=== PATIENT | male | born 1965 | race Caucasian/White ===

== ENCOUNTER 2025-01-31 09:33 | Emergency (ER) | payer BC, SELFPAY ==
[2025-01-31] VITALS (13 sets, daily range): BP systolic 135–170; BP diastolic 59–100; PULSE 37–45; RESP 11–18; TEMP 36.1; O2SAT 97–100; BMI 26.6
--- NOTE | 2025-01-31 09:41 | ED_ITS ---
HPI - General Adult General Time Seen by Provider: 09:41 Date Seen: 01/31/25 Chief complaint: Arrhythmia/Palpitations Stated complaint: heartblock Time Seen by Provider: 01/31/25 09:40 Source: patient, RN notes reviewed and other (Dr. Arauz brought EKG over, gave report to me.) Mode of arrival: ambulatory Limitations: no limitations History of Present Illness HPI narrative: This 59-year-old male is brought over from the clinic with a finding of complete heart block on his EKG. He had scheduled an appointment in clinic with Dr. Arauz to establish care. His pulse was low and EKG was obtained showing complete heart block with a rate of 43 beats per minute, right bundle branch block. Patient notes no recent history of any episodes of chest pain. He state s sometimes will get a little dry feeling in his throat with some discomfort. 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 He notes no dyspnea on exertion or shortness of breath. 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 He did get his care through [facility]. He notes his blood pressure is usually low, really has not noted any problems with his pulse or really paid attention to his pulse. Related Data Home Medications ?Medication ?Instructions ?Recorded ?Confirmed No Known Home Medications 02/01/2201/09 Allergies Allergy/AdvReac Type Severity Reaction Status Date / Time pollen extracts Allergy Mild Congested Verified 01/31/25 08:40 Review of Systems Status of ROS: Reports: 6 or more systems reviewed and unremarkable except as noted in History and below [facility] Medical History Bradycardia ?R00.1 - Bradycardia, unspecified (ICD-10) Pathologic lumbar vertebral fracture ?M84.48XA - Pathological fracture, other site, initial encounter for fracture (ICD-10) Chronic dryness of both eyes ?H04.123 - Dry eye syndrome of bilateral lacrimal glands (ICD-10) Osteoarthritis of left knee ?M17.12 - Unilateral primary osteoarthritis, left knee (ICD-10) History of pulmonary embolus (PE) (2014) ?Z86.711 - Personal history of pulmonary embolism (ICD-10) History of diffuse large B-cell lymphoma (06/2014) ?Z85.72 - Personal history of non-Hodgkin lymphomas (ICD-10) Surgical History History of right cataract surgery (2022) ?Z98.41 - Cataract extraction status, right eye (ICD-10) Status post laparoscopic Heller myotomy ?Z98.890 - Other specified postprocedural states (ICD-10) History of appendectomy ?Z90.49 - Acquired absence of other specified parts of digestive tract (ICD- 10) History of Meckel's diverticulum ?Z87.19 - Personal history of other diseases of the digestive system (ICD-10) Family History Brother Premature coronary artery disease Myocardial infarction, Onset Age: 46 , Onset Age: 46 Paternal Grandmother Heart disease Father High blood pressure, Onset Age: 16 Paternal Grandfather Heart disease Social History What is your current living situation?: I presently have a place to live Problems where you live: declined to answer In the past 12 months, utilities in danger of being shut off: no In past 12 months, lack of transportation kept you from medical appts, meetings, work, or getting things needed for daily living: no In the past 12 mos, have been you worried that your food would run out before you had money to buy more?: declined to answer In the past 12 mos, the food you bought just didn't last and you didn't have money to buy more?: declined to answer Smoking Status: Never smoker How often does anyone, including family, friends and others, physically hurt you : never How often does anyone, including family, friends and others, insult or talk down to you: never How often does anyone, including family, friends and others, threaten you with harm: never How often does anyone, including family, friends and others, scream or curse at you: never Exam Const: Vital Signs, click to edit/add: Vital Signs - 24 hr 01/31/25 09:45 01/31/25 09:45 01/31/25 10:00 Temperature 97.0 F L Pulse Rate 44 L 39 L Pulse Rate [Pulse Oximeter] 45 L Respiratory Rate 18 15 Blood Pressure Blood Pressure [Ri ght Upper Arm] 170/89 H Pulse Oximetry 99 100 99 Oxygen Delivery Me thod Room Air 01/31/25 10:03 Temperature Pulse Rate 41 L Pulse Rate [Pulse Oximeter] Respiratory Rate 16 Blood Pressure 159/64 H Blood Pressure [Ri ght Upper Arm] Pulse Oximetry 98 Oxygen Delivery Me thod This 59-year-old male is alert, interactive, no apparent distress. Ambulatory into the ED from clinic. Sclera clear come face atraumatic. Skin appears pale but sclera clear. Able to speak in complete sentences, speech normal. Neck is supple, no adenopathy or masses. Lungs are clear, good air entry, wheezing or crackles, no tachypnea, no accessory muscle use. CV is slow but regular, no murmur noted, normal S1-S2. Abdomen is soft, nontender, nondistended, no organomegaly. No lower extremity edema. Documenting provider has reviewed patient's vital signs: yes Course Course ED Course: Milo is aware that he is in complete heart block, this has already been explain to him. He and I discussed that he needs to see Cardiology, he thought maybe he would go back to [facility] as that is where he did is cancer care. I will try to talk to them. Will have him on cardiac monitoring, pulse oximetry, pacer pads placed but he seems quite stable. Will check labs. He states he is on no medicines, thus there is not likely anything contributing. Will certainly get troponin but it does not sound like he is aware of any episode that would suggest he had a heart attack. Consultations Consultation #1: Did speak with Madelyn MAZARIEGOS in triage at [facility]. [facility] and cardiac ICU are on divert, they have no bed capacity. She is going to check with [facility]. Have updated the patient on this. If [facility] has no bed capacity, he is in agreement to check with [facility]. 9:57 a.m.: Madelyn MAZARIEGOS did call back, she will be paging cardiology at [facility] and reviewing case to see if they can accept this patient. She will let me know as soon as she finds anything out. Time: 09:47 Consultation #2: Spoke with Dr. Johnson from [facility]. They will be taking this patient through the ED so he can go to the electrical laboratory technician for temporary pacemaker. Dr. Bruner from [facility] was patched in on the call, is aware of the plan. Patient has complete heart block and will be transferred to [facility] for further care. Patient is updated on this and is in agreement with plan. Time: 11:08 Vital Signs Vital signs: Initial Vital Signs Temperature 97.0 F L 01/31/25 09:45 Temperature Source Temporal Artery Scan 01/31/25 09:45 Pulse Rate 44 L 01/31/25 09:45 Respiratory Rate 18 01/31/25 09:45 Blood Pressure 170/89 H 01/31/25 09:45 Blood Pressure Mean 116 H 01/31/25 09:45 Blood Pressure Position Sitting 01/31/25 09:45 Pulse Oximetry 99 01/31/25 09:45 Oxygen Delivery Method Room Air 01/31/25 09:45 Vital Signs Temperature 97.0 F L 01/31/25 09:45 Pulse Rate 44 L 01/31/25 09:45 Respiratory Rate 18 01/31/25 09:45 Blood Pressure 170/89 H 01/31/25 09:45 Pulse Oximetry 99 01/31/25 09:45 Oxygen Delivery Method Room Air 01/31/25 09:45 Temperature 97.0 F L 01/31/25 09:45 Pulse Rate 41 L 01/31/25 10:03 Respiratory Rate 16 01/31/25 10:03 Blood Pressure 159/64 H 01/31/25 10:03 Pulse Oximetry 98 01/31/25 10:03 Oxygen Delivery Method Room Air 01/31/25 09:45 Medical Decision Making Lab Data Lab results reviewed: Yes I reviewed the patient's lab results Labs: Lab Results 01/31/25 Range/Units 09:55 WBC 6.70 (4.50-11.00) K/uL RBC 4.48 (4.30-5.90) m/uL Hgb 13.4 L (13.5-17.5) gm/dL Hct 40.5 (37.0-53.0) % MCV 90 (80-100) fL MCH 30 (26-34) pg MCHC 33 (32-36) gm/dL RDW Coeff of Harinder 12.8 (11.5-15.5) % Plt Count 220 (140-440) K/uL Neut % (Auto) 59.9 (42.0-72.0) % Lymph % (Auto) 26.9 (20-44) % [place] % (Auto) 10.7 (0.0-11.0) % Eos % (Auto) 1.9 (0.0-7.0) % Baso % (Auto) 0.3 (0.0-3.0) % Neut # (Auto) 4.01 (1.7-7.0) K/uL Lymph # (Auto) 1.80 (0.90-2.90) K/uL [place] # (Auto) 0.70 (0.00-0.90) K/UL Eos # (Auto) 0.13 (0.00-0.50) K/uL Baso # (Auto) 0.02 (0.00-0.30) K/uL Abs Immat Gran (auto) 0.02 (0.00-0.30) K/uL Imm/Tot Granulo (auto) 0.3 % Sodium 137 (135-149) mmol/L Potassium 4.2 (3.6-5.1) mmol/L Chloride 105 (96-114) mmol/L Carbon Dioxide 28 (20-32) mmol/L Anion Gap 4 L (7-15) mEq/L BUN 24 (7-30) mg/dL Creatinine 0.8 (0.5-1.5) mg/dL Estimated Creat Clear 79.03 Estimated GFR 101 ml/min Glucose 91 (60-115) mg/dL Calcium 9.1 (8.4-10.6) mg/dL Total Bilirubin 0.6 (0.1-1.5) mg/dL AST 28 (12-35) U/L ALT 18 (4-50) U/L Alkaline Phosphatase 67 (40-150) U/L Troponin I < 0.01 (0.01-0.04) ng/mL NT-Pro-B Natriuret Pep 707 H (See Note) pg/mL Total Protein 6.9 (6.0-8.3) g/dL Albumin 4.0 (3.3-5.0) g/dL Imaging Data Chest x-ray: Attestation: I have reviewed the pertinent imaging results. My impression: He appears to have cardiomegaly but note no CHF or effusions. Await Radiology over-read. Radiologist's impression: Patient: JR HALE Facility:?[facility] Patient ID:?[id number] Site Patient ID:?[id number]. Site :?[id number] Study:?XRay-Chest -01/31/2025 10:06:30 AM Ordering Physician:Purvi Dias Final Report: Indication: Complete heart block Technique: Chest 1 view Comparison: Chest x-ray 09/20/2014 Findings/Impression: Cardiovascular and mediastinum: Upper normal heart size. Mediastinum unremarkable. Lungs and pleural space: Lungs are clear. No sign of infiltrate or mass. No sign of pleural effusion. No pneumothorax. Bones and soft tissues: No acute findings. Dictated by Ashvin Carcamo MD @ 01/31/2025 10:19:52 AM (Electronic Signature) ECG Data Attestation: I personally reviewed and interpreted this ECG as follows: (Complete heart block, rate 43 beats per minute, right bundle branch block. No evidence of any active ischemia.) Prior ECG tracings: not available for review Discharge Plan Discharge Clinical Impression: CHB (complete heart block) Patient Disposition: Xfer [facility] Discharge Location: [facility] Condition: Unchanged Prescriptions: No Action No Known Home Medications Stand Alone Forms: [facility] Info Instructions
--- NOTE | 2025-01-31 09:42 | CRLHL7_ITS ---
For Patients: As a result of the Century Cures Act, medical imaging exams and procedure reports are released immediately into your electronic medical record. You may view this report before your referring provider. If you have questions, please contact your health care provider. Indication: Complete heart block Technique: Chest 1 view Comparison: Chest x-ray 09/20/2014 Findings/Impression: Cardiovascular and mediastinum: Upper normal heart size. Mediastinum unremarkable. Lungs and pleural space: Lungs are clear. No sign of infiltrate or mass. No sign of pleural effusion. No pneumothorax. Bones and soft tissues: No acute findings. Dictated by Ashvin Carcamo MD @ 01/31/2025 10:19:52 AM (Electronically Signed)
[2025-01-31 10:07] LABS: Hematocrit* 40.5 % (37.0-53.0); Hemoglobin* 13.4 gm/dL (13.5-17.5); Immature Granulocytes Abs Auto 0.02 K/uL (0.00-0.30); Immature Granulocytes Pct Auto 0.3 %; Lymphocytes Absolute Auto 1.80 K/uL (0.90-2.90); Mean Corpuscular HGB Conc 33 gm/dL (32-36); Mean Corpuscular Hemoglobin 30 pg (26-34); Mean Corpuscular Volume 90 fL (80-100); RDW Coefficient of Variation % 12.8 % (11.5-15.5); Red Blood Count* 4.48 m/uL (4.30-5.90); White Blood Count* 6.70 K/uL (4.50-11.00)
[2025-01-31 10:08] LABS: Slide Review Reflex No
[2025-01-31 10:22] LABS: Albumin* 4.0 g/dL (3.3-5.0); Chloride* 105 mmol/L (96-114); Potassium* 4.2 mmol/L (3.6-5.1); Sodium* 137 mmol/L (135-149)
[2025-01-31 10:25] LABS: Alanine Aminotransferase* 18 U/L (4-50); Alkaline Phosphatase* 67 U/L (40-150); Anion Gap 4 mEq/L (7-15); Aspartate Amino Transferase* 28 U/L (12-35); Bilirubin Total* 0.6 mg/dL (0.1-1.5); Blood Urea Nitrogen* 24 mg/dL (7-30); Calcium* 9.1 mg/dL (8.4-10.6); Carbon Dioxide* 28 mmol/L (20-32); Creatinine* 0.8 mg/dL (0.5-1.5); Est. Creatinine Clearance* 79.03; Estimated Glomerular Filt Rate 101 ml/min; Glucose* 91 mg/dL (60-115); Total Protein* 6.9 g/dL (6.0-8.3)
[2025-01-31 10:36] LABS: NT Pro B Type NatriureticPept* 707 pg/mL (See Note)
[2025-01-31 11:13] LABS: TSH With Reflex to FT4* 1.500 uIU/mL (0.270-4.200)
== END 2025-01-31 11:44 | disposition short-term general hospital (02) ==
PROVIDERS: Emergency Provider Family Medicine
DX: I44.2 Atrioventricular block, complete (principal)
CPT/HCPCS: 36415; 71045; 80053; 83880; 84443; 84484; 85025; 94761; 99284; 99285

== ENCOUNTER 2025-01-31 11:35 | Outpatient (CLI) | payer BC, SELFPAY | END 2025-01-31 11:36 | disposition home or self-care (01) | LOC: AMB 02-02 10:21 | PROVIDERS: Visit Provider Family Medicine | DX: I44.2 Atrioventricular block, complete (principal) | CPT/HCPCS: A0425; A0427 ==